=== PATIENT | female | born 1995 | race African-American/Black ===

== ENCOUNTER 2017-08-16 11:31 | Emergency (ER) | payer SELFPAY ==
[~2017-08-16] VITALS: Ht 160 cm; Wt 95.3 kg
[2017-08-16 12:01] VITALS: BP 121/91
== END 2017-08-16 13:50 | disposition home or self-care (01) ==
LOC: ER 11:31
DX: H66.91 Otitis media, unspecified, right ear (principal)

== ENCOUNTER 2019-05-21 08:11 | Emergency (ER) | payer BC, MEDICAID ==
[~2019-05-21] VITALS: Ht 162.6 cm; Wt 104.3 kg
[2019-05-21 08:38] VITALS: BP 106/63
[2019-05-21] MEDS ORDERED: methylPREDNISolone SOD SUCC 125 MG/2 ML VL IM ONE (09:15)
[2019-05-21] MEDS ORDERED: cefTRIAXone SOD 1,000 MG VL IM ONE (09:15)
== END 2019-05-21 09:45 | disposition home or self-care (01) ==
LOC: ER 08:16
DX: J03.90 Acute tonsillitis, unspecified (principal)
CPT/HCPCS: 96372; 99283; J0696; J2930